=== PATIENT | female | born 1985 | race African-American/Black ===

== ENCOUNTER 2020-12-19 07:08 | Outpatient (CLI) | payer OTHER | END 2020-12-19 23:59 | disposition home or self-care (01) | LOC: LAB 07:08 | PROVIDERS: ATTEND Internal Medicine | DX: Z01.812 Encounter for preprocedural laboratory examination (principal); Z20.822 Contact with and (suspected) exposure to COVID-19 ==

== ENCOUNTER 2020-12-21 06:13 | Day surgery (SDC) | payer OTHER ==
[2020-12-21] MEDS ORDERED: LIDOCAINE-MPF 2% 5 ML VIAL IJ ONE (06:14)
[2020-12-21] MEDS ORDERED: PROPOFOL 200 MG/20 ML BOTTLE IV ONE (06:14)
[2020-12-21] MEDS ORDERED: DEXAMETHASONE SOD PHOSPHATE 4 MG INJ IV ONE (06:14)
[2020-12-21] MEDS ORDERED: SEVOFLURANE 250 ML BOTTLE IH ONE (06:14)
[2020-12-21] MEDS ORDERED: CEFAZOLIN 1 G VIAL IM ONE (06:14)
[2020-12-21 06:51] LABS: *URINE HCG, QUAL NEGATIVE (NEGATIVE)
[2020-12-21] MEDS ORDERED: POLYMYXIN B SULFATE 500,000 UNITS VIAL ONE (07:25)
[2020-12-21] MEDS ORDERED: FENTANYL CITRATE 100 MCG/2 ML AMPUL ONE ×2 (08:03→11:44)
[2020-12-21] MEDS ORDERED: LIDOCAINE HCL 1% 20 ML VIAL ONE (08:56)
[2020-12-21] MEDS ORDERED: HYDROMORPHONE 2 MG/1 ML DISP.SYRIN ONE (10:21)
[2020-12-21] MEDS ORDERED: BUPIVACAINE PF 0.5% 30 ML VIAL ONE (10:50)
[2020-12-21] MEDS ORDERED: KETOROLAC TROMETHAMINE 30 MG INJ ONE (11:44)
[2020-12-21] MEDS ORDERED: ONDANSETRON 4 MG/2 ML VIAL ONE (11:45)
[2020-12-21] MEDS ORDERED: HYDROMORPHONE 1 MG/1 ML DISP.SYRIN ONE (12:02)
[2020-12-21] MEDS ORDERED: OXYCODONE/APAP 5-325 MG TABLET ONE (13:20)
== END 2020-12-21 15:00 | disposition home or self-care (01) ==
LOC: DS 06:13
PROVIDERS: ATTEND Orthopaedic Surgery
DX: S82.842A Displaced bimalleolar fracture of left lower leg, initial encounter for closed fracture (principal); M25.572 Pain in left ankle and joints of left foot; Z79.899 Other long term (current) drug therapy; Z98.890 Other specified postprocedural states; Z72.89 Other problems related to lifestyle; X58.XXXA Exposure to other specified factors, initial encounter; Y93.89 Activity, other specified; Y92.89 Other specified places as the place of occurrence of the external cause; Y99.8 Other external cause status
CPT/HCPCS: 27814; 73610 ×2; 84703; 97116; C1713; J0690; J1100; J1170 ×2; J1885; J2405; J3010 ×2; J3490 ×4; J7120; A4663